=== PATIENT | female | born 1955 | race Caucasian/White ===

== ENCOUNTER 2022-12-11 23:38 | Emergency (ER) | payer MEDICARE ==
[2022-12-11] MEDS ORDERED: traMADol 50 MG Tab PO ONE (23:39)
[2022-12-12] MEDS ORDERED: traMADol 50 MG Tab PO STA (00:57)
[2022-12-12] MEDS ORDERED: Acetaminophen 500 MG Tab PO ONE (00:57)
== END 2022-12-12 01:48 | disposition home or self-care (01) ==
LOC: FB.ED 23:38
DX: S52.591A Other fractures of lower end of right radius, initial encounter for closed fracture (principal); S52.614A Nondisplaced fracture of right ulna styloid process, initial encounter for closed fracture; W10.8XXA Fall (on) (from) other stairs and steps, initial encounter
CPT/HCPCS: 73090-RT; 73110-RT; 73130-RT; 99283; A9270-GY